=== PATIENT | female | born 1935 | race Caucasian/White ===

== ENCOUNTER 2017-12-01 14:36 | Inpatient (IN) | payer MEDICARE, OTHER ==
[2017-12-01 16:51] LABS: ADD MAN DIFF? NO
[2017-12-01] MEDS: SOD CHLORIDE 0.9% 1,000 ML IV (17:00)
[2017-12-01 17:02] LABS: BASOPHIL # 0.1 10^3/ul (0.0-0.1); BASOPHILS % 0.8 % (0.0-2.0); EOSINOPHILS # 0.2 10^3/ul (0.0-0.5); EOSINOPHILS % 2.5 % (0.0-7.0); HEMOGLOBIN 12.2 g/dl (12.0-16.0); LYMPHOCYTES # 2.1 10^3/ul (0.8-2.9); LYMPHOCYTES % 28.2 % (15.0-51.0); MEAN CORPUSCULAR HEMOGLOBIN 28.1 pg (29.0-33.0); MEAN CORPUSCULAR HGB CONC 32.1 g/dl (32.0-37.0); MEAN CORPUSCULAR VOLUME 87.6 fl (82.0-101.0); MEAN PLATELET VOLUME 10.2 fl (7.4-10.4); MONOCYTE # 0.4 10^3/ul (0.3-0.9); MONOCYTES % 4.8 % (0.0-11.0); NEUTROPHIL # 4.8 10^3/ul (1.6-7.5); NEUTROPHILS % 63.3 % (39.0-77.0); PLATELET COUNT 326 10^3/UL (140-415); RED BLOOD COUNT 4.34 10^6/ul (4.20-5.40); RED CELL DISTRIBUTION WIDTH 13.1 % (11.5-14.5)
[2017-12-01 17:02] LABS: WHITE BLOOD COUNT 7.5 10^3/ul (4.8-10.8)
[2017-12-01] MEDS: PIPER-TAZO 3.375 GM IV (PMX) 100 ML IVPB (17:04)
[2017-12-01 17:32] LABS: ALANINE AMINOTRANSFERASE 24 IU/L (13-69); ALBUMIN 4.4 g/dl (3.3-4.9); ALBUMIN/GLOBULIN RATIO 0.93; ALKALINE PHOSPHATASE 90 IU/L (42-121); ANION GAP 19 (8-16); ASPARTATE AMINO TRANSFERASE 23 IU/L (15-46); BILIRUBIN,INDIRECT 0.3 mg/dl (0-1.1); BILIRUBIN,TOTAL 0.3 mg/dl (0.2-1.3); BLOOD UREA NITROGEN 21 mg/dl (7-20); CALCIUM 9.4 mg/dl (8.4-10.2); CARBON DIOXIDE 28 mmol/L (21-31); CHLORIDE 105 mmol/L (97-110); CREATININE 0.84 mg/dl (0.44-1.00); GLUCOSE 96 mg/dl (70-220); POTASSIUM 4.1 mmol/L (3.5-5.1); SODIUM 148 mmol/L (135-144); TOTAL PROTEIN 9.1 g/dl (6.1-8.1)
[2017-12-01] MEDS: VANCOMYCIN 1 GM (PMX) 250 ML IVPB (18:02)
[2017-12-01 18:08] LABS: ADD UMIC YES; UR ASCORBIC ACID NEGATIVE (NEGATIVE); UR BILIRUBIN (Dip) NEGATIVE (NEGATIVE); UR BLOOD (Dip) 1+ mg/dL (NEGATIVE); UR CLARITY CLOUDY (CLEAR); UR COLOR YELLOW (YELLOW); UR GLUCOSE (Dip) NEGATIVE (NEGATIVE); UR KETONES (Dip) NEGATIVE (NEGATIVE); UR LEUKOCYTE ESTERASE (Dip) 3+ Leu/ul (NEGATIVE); UR NITRITE (Dip) NEGATIVE (NEGATIVE); UR RBC 0 /HPF (0-5); UR SPECIFIC GRAVITY (Dip) 1.004 (1.003-1.030); UR SQUAMOUS EPITHELIAL CELL FEW /HPF (FEW); UR TOTAL PROTEIN (Dip) NEGATIVE (NEGATIVE); UR UROBILINOGEN (Dip) NEGATIVE (NEGATIVE); UR WBC 118 /HPF (0-5)
[2017-12-01] MEDS ORDERED: ONDANSETRON 4 MG INJ IV ×2 (19:00→23:00)
[2017-12-01] MEDS ORDERED: ACETAMINOPHEN 325 MG TAB PO (19:00)
[2017-12-01] MEDS ORDERED: GLUCOSE GEL 15 GRAM TUBE (21:45)
[2017-12-01] MEDS: GLUCOSE GEL 15 GRAM TUBE PO (22:00)
[2017-12-01] MEDS ORDERED: DEXTROSE 50% 50 ML SYRINGE ×2 (22:03→22:05)
[2017-12-02] MEDS: LORAZEPAM 2 MG INJ IV (00:16)
[2017-12-02] MEDS: MEROPENEM 500MG/50 ML (PMX) 50 ML IVPB ×3 (00:17→22:05)
[2017-12-02] MEDS: DEXTROSE 5%-0.45% NACL 1,000 ML IV ×2 (00:17→16:35)
[2017-12-02] MEDS: DEXTROSE 50% 50 ML SYRINGE IV (00:34)
[2017-12-02] MEDS: ACCU-CHEK XX (02:00)
[2017-12-02 06:17] LABS: ADD MAN DIFF? NO
[2017-12-02 06:24] LABS: BASOPHILS % 0.6 % (0.0-2.0); EOSINOPHILS # 0.2 10^3/ul (0.0-0.5); EOSINOPHILS % 2.6 % (0.0-7.0); HEMATOCRIT 33.6 % (37.0-47.0); HEMOGLOBIN 10.8 g/dl (12.0-16.0); LYMPHOCYTES # 1.6 10^3/ul (0.8-2.9); LYMPHOCYTES % 22.7 % (15.0-51.0); MEAN CORPUSCULAR HEMOGLOBIN 28.1 pg (29.0-33.0); MEAN CORPUSCULAR HGB CONC 32.1 g/dl (32.0-37.0); MEAN CORPUSCULAR VOLUME 87.3 fl (82.0-101.0); MEAN PLATELET VOLUME 10.9 fl (7.4-10.4); MONOCYTE # 0.5 10^3/ul (0.3-0.9); MONOCYTES % 7.3 % (0.0-11.0); NEUTROPHIL # 4.6 10^3/ul (1.6-7.5); NEUTROPHILS % 66.4 % (39.0-77.0); PLATELET COUNT 281 10^3/UL (140-415); RED BLOOD COUNT 3.85 10^6/ul (4.20-5.40); RED CELL DISTRIBUTION WIDTH 13.2 % (11.5-14.5)
[2017-12-02 06:24] LABS: WHITE BLOOD COUNT 6.9 10^3/ul (4.8-10.8)
[2017-12-02 06:44] LABS: HEMOGLOBIN A1C 8.6 % (0-5.9)
[2017-12-02 06:55] LABS: MAGNESIUM 1.5 mg/dl (1.7-2.5)
[2017-12-02] MEDS: ENOXAPARIN 40 MG/0.4 ML SYG SC (11:04)
[2017-12-02] MEDS: MAGNESIUM SULFATE 3 GM in DEXTROSE 5% 100 ML IVPB (11:06)
[2017-12-02] MEDS ORDERED: DEXTROSE 50% 50 ML SYRINGE IV ×2 (20:30)
[2017-12-02] MEDS ORDERED: GLUCOSE GEL 15 GRAM TUBE PO ×2 (20:30)
[2017-12-02] MEDS ORDERED: GLUCAGON 1 MG INJ IM (20:30)
[2017-12-02] MEDS ORDERED: GLUCOSE GEL 15 GRAM TUBE BUCCAL (20:30)
[2017-12-02] MEDS: ATORVASTATIN 20 MG TAB PO (22:06)
[2017-12-02] MEDS: INSULIN GLARGINE [LANtus] 3 ML PEN SC (22:06)
[2017-12-02] MEDS: INSULIN ASPART [NOVOLOG] 3 ML PEN SC (22:07)
[2017-12-03] MEDS: ACCU-CHEK XX (02:00)
[2017-12-03 04:53] LABS: ADD MAN DIFF? NO
[2017-12-03 05:31] LABS: INR 1.05; PROTIME 13.8 Sec (11.9-14.9); PT RATIO 1.1
[2017-12-03 06:14] LABS: ALANINE AMINOTRANSFERASE 22 IU/L (13-69); ALBUMIN 3.4 g/dl (3.3-4.9); ALBUMIN/GLOBULIN RATIO 0.89; ALKALINE PHOSPHATASE 76 IU/L (42-121); ANION GAP 16 (8-16); ASPARTATE AMINO TRANSFERASE 23 IU/L (15-46); BILIRUBIN,INDIRECT 0.5 mg/dl (0-1.1); BILIRUBIN,TOTAL 0.5 mg/dl (0.2-1.3); BLOOD UREA NITROGEN 12 mg/dl (7-20); CALCIUM 8.7 mg/dl (8.4-10.2); CARBON DIOXIDE 25 mmol/L (21-31); CHLORIDE 109 mmol/L (97-110); CREATININE 0.71 mg/dl (0.44-1.00); GLUCOSE 114 mg/dl (70-220); PHOSPHORUS 3.4 mg/dl (2.5-4.9); POTASSIUM 3.9 mmol/L (3.5-5.1); SODIUM 146 mmol/L (135-144); TOTAL PROTEIN 7.2 g/dl (6.1-8.1)
[2017-12-03 06:50] LABS: WHITE BLOOD COUNT 5.9 10^3/ul (4.8-10.8)
[2017-12-03 06:50] LABS: BASOPHILS % 0.7 % (0.0-2.0); EOSINOPHILS # 0.2 10^3/ul (0.0-0.5); EOSINOPHILS % 2.6 % (0.0-7.0); HEMATOCRIT 33.7 % (37.0-47.0); LYMPHOCYTES # 1.6 10^3/ul (0.8-2.9); LYMPHOCYTES % 26.7 % (15.0-51.0); MEAN CORPUSCULAR HEMOGLOBIN 28.5 pg (29.0-33.0); MEAN CORPUSCULAR HGB CONC 32.6 g/dl (32.0-37.0); MEAN CORPUSCULAR VOLUME 87.3 fl (82.0-101.0); MEAN PLATELET VOLUME 10.5 fl (7.4-10.4); MONOCYTE # 0.4 10^3/ul (0.3-0.9); MONOCYTES % 7.2 % (0.0-11.0); NEUTROPHIL # 3.7 10^3/ul (1.6-7.5); NEUTROPHILS % 62.3 % (39.0-77.0); PLATELET COUNT 266 10^3/UL (140-415); RED BLOOD COUNT 3.86 10^6/ul (4.20-5.40); RED CELL DISTRIBUTION WIDTH 13.2 % (11.5-14.5)
[2017-12-03] MEDS: INSULIN ASPART [NOVOLOG] 3 ML PEN SC ×4 (08:00→20:25)
[2017-12-03] MEDS: MEROPENEM 500MG/50 ML (PMX) 50 ML IVPB ×2 (08:12→20:21)
[2017-12-03] MEDS: ENOXAPARIN 40 MG/0.4 ML SYG SC (08:28)
[2017-12-03] MEDS: INSULIN GLARGINE [LANtus] 3 ML PEN SC ×2 (08:56→20:24)
[2017-12-03] MEDS: LOSARTAN 50 MG TAB PO (08:57)
[2017-12-03] MEDS: metFORMIN 500 MG TAB PO ×4 (08:57→17:17)
[2017-12-03] MEDS: ASPIRIN (EC) 81 MG TAB PO (08:57)
[2017-12-03] MEDS: AMLODIPINE 10 MG TAB PO (08:57)
[2017-12-03] MEDS: METOPROLOL (XL) 50 MG TAB PO (08:57)
[2017-12-03] MEDS: LACTOBACILLUS RHAMNOSUS CAP PO ×2 (12:20→20:26)
[2017-12-03] MEDS: FLUCONAZOLE 200 MG TAB PO (12:21)
[2017-12-03] MEDS: BARIUM SULF 2% 450 ML BTL (BERRY SMOOTHIE) PO (15:53)
[2017-12-03] MEDS: ATORVASTATIN 20 MG TAB PO (20:26)
[2017-12-03] MEDS: LORAZEPAM 2 MG INJ IV (20:27)
[2017-12-04] MEDS: ACCU-CHEK XX (02:00)
[2017-12-04] MEDS: LEVOFLOXACIN 250 MG TAB PO (05:22)
[2017-12-04] MEDS: metFORMIN 500 MG TAB PO ×3 (07:35→18:07)
[2017-12-04] MEDS: INSULIN ASPART [NOVOLOG] 3 ML PEN SC ×4 (08:00→22:30)
[2017-12-04] MEDS: AMLODIPINE 10 MG TAB PO (09:04)
[2017-12-04] MEDS: FLUCONAZOLE 200 MG TAB PO (09:04)
[2017-12-04] MEDS: LACTOBACILLUS RHAMNOSUS CAP PO ×2 (09:04→22:26)
[2017-12-04] MEDS: MEROPENEM 500MG/50 ML (PMX) 50 ML IVPB ×2 (09:04→22:26)
[2017-12-04] MEDS: LOSARTAN 50 MG TAB PO (09:04)
[2017-12-04] MEDS: ASPIRIN (EC) 81 MG TAB PO (09:04)
[2017-12-04] MEDS: METOPROLOL (XL) 50 MG TAB PO (09:05)
[2017-12-04] MEDS: ENOXAPARIN 40 MG/0.4 ML SYG SC (09:07)
[2017-12-04] MEDS: INSULIN GLARGINE [LANtus] 3 ML PEN SC ×2 (09:07→22:29)
[2017-12-04] MEDS: ATORVASTATIN 20 MG TAB PO (22:26)
[2017-12-04] MEDS: QUETIAPINE 25 MG TAB PO (22:26)
[2017-12-05] MEDS: LORAZEPAM 2 MG INJ IV (01:36)
[2017-12-05] MEDS: ACCU-CHEK XX (01:45)
[2017-12-05] MEDS: INFLUENZA VIRUS VACCINE 0.5 ML (DISPENSING) IM* (09:00)
[2017-12-05] MEDS: MEROPENEM 500MG/50 ML (PMX) 50 ML IVPB ×2 (09:22→22:01)
[2017-12-05] MEDS: LOSARTAN 50 MG TAB PO (09:22)
[2017-12-05] MEDS: FLUCONAZOLE 200 MG TAB PO (09:22)
[2017-12-05] MEDS: metFORMIN 500 MG TAB PO ×3 (09:23→18:24)
[2017-12-05] MEDS: METOPROLOL (XL) 50 MG TAB PO (09:23)
[2017-12-05] MEDS: AMLODIPINE 10 MG TAB PO (09:23)
[2017-12-05] MEDS: ASPIRIN (EC) 81 MG TAB PO (09:23)
[2017-12-05] MEDS: LACTOBACILLUS RHAMNOSUS CAP PO ×2 (09:23→22:00)
[2017-12-05] MEDS: ENOXAPARIN 40 MG/0.4 ML SYG SC (09:25)
[2017-12-05] MEDS: INSULIN GLARGINE [LANtus] 3 ML PEN SC ×2 (09:26→21:58)
[2017-12-05] MEDS: INSULIN ASPART [NOVOLOG] 3 ML PEN SC ×4 (09:26→21:59)
[2017-12-05] MEDS: ATORVASTATIN 20 MG TAB PO (22:00)
[2017-12-05] MEDS: QUETIAPINE 25 MG TAB PO (22:00)
[2017-12-06] MEDS: ACCU-CHEK XX (02:00)
[2017-12-06] MEDS: LORAZEPAM 2 MG INJ IV (03:39)
[2017-12-06] MEDS: INSULIN ASPART [NOVOLOG] 3 ML PEN SC ×3 (08:42→17:30)
[2017-12-06] MEDS: INSULIN GLARGINE [LANtus] 3 ML PEN SC (08:43)
[2017-12-06] MEDS: ENOXAPARIN 40 MG/0.4 ML SYG SC (08:43)
[2017-12-06] MEDS: MEROPENEM 500MG/50 ML (PMX) 50 ML IVPB (08:44)
[2017-12-06] MEDS: metFORMIN 500 MG TAB PO ×3 (08:45→17:50)
[2017-12-06] MEDS: LACTOBACILLUS RHAMNOSUS CAP PO (08:45)
[2017-12-06] MEDS: ASPIRIN (EC) 81 MG TAB PO (08:45)
[2017-12-06] MEDS: AMLODIPINE 10 MG TAB PO (08:45)
[2017-12-06] MEDS: LOSARTAN 50 MG TAB PO (08:46)
[2017-12-06] MEDS: METOPROLOL (XL) 50 MG TAB PO (08:46)
== END 2017-12-06 19:10 | disposition home health service (06) | DRG 57 ==
LOC: PP2 20:43 → E/R 14:36 → PP2 18:57
DX: G30.9 Alzheimer's disease, unspecified (principal); F05 Delirium due to known physiological condition; B37.49 Other urogenital candidiasis; D64.9 Anemia, unspecified; E11.9 Type 2 diabetes mellitus without complications; E78.5 Hyperlipidemia, unspecified; I10 Essential (primary) hypertension; F02.80 Dementia in other diseases classified elsewhere, unspecified severity, without behavioral disturbance, psychotic disturbance, mood disturbance, and anxiety; M54.30 Sciatica, unspecified side; Z79.4 Long term (current) use of insulin; Z79.82 Long term (current) use of aspirin; Z90.49 Acquired absence of other specified parts of digestive tract
CPT/HCPCS: 36415; 71045; 74176; 80053; 81001; 82962; 83036; 83735; 84100; 84443; 85025; 85610; 87040; 87086; 92610; 93306; 96374; 96375; 97116; 97162; 97530; 99285-25

== ENCOUNTER 2017-12-21 16:22 | Inpatient (IN) | payer MEDICARE, OTHER ==
[2017-12-21] MEDS: SODIUM CHLORIDE 0.9% 1L BAG IV* (17:36)
[2017-12-21 17:49] LABS: ADD MAN DIFF? NO
[2017-12-21 17:52] LABS: BASOPHILS % 0.4 % (0.0-2.0); EOSINOPHILS # 0.1 10^3/ul (0.0-0.5); HEMATOCRIT 36.3 % (37.0-47.0); HEMOGLOBIN 11.8 g/dl (12.0-16.0); LYMPHOCYTES # 1.5 10^3/ul (0.8-2.9); LYMPHOCYTES % 21.6 % (15.0-51.0); MEAN CORPUSCULAR HEMOGLOBIN 28.6 pg (29.0-33.0); MEAN CORPUSCULAR HGB CONC 32.5 g/dl (32.0-37.0); MEAN CORPUSCULAR VOLUME 87.9 fl (82.0-101.0); MEAN PLATELET VOLUME 10.9 fl (7.4-10.4); MONOCYTE # 0.7 10^3/ul (0.3-0.9); MONOCYTES % 9.7 % (0.0-11.0); NEUTROPHIL # 4.8 10^3/ul (1.6-7.5); NEUTROPHILS % 67.2 % (39.0-77.0); PLATELET COUNT 360 10^3/UL (140-415); RED BLOOD COUNT 4.13 10^6/ul (4.20-5.40); RED CELL DISTRIBUTION WIDTH 13.7 % (11.5-14.5)
[2017-12-21 17:52] LABS: WHITE BLOOD COUNT 7.1 10^3/ul (4.8-10.8)
[2017-12-21] MEDS: CEFEPIME 2GM/50 ML (PMX) 50 ML IVPB (18:07)
[2017-12-21 18:12] LABS: PROTIME 13.3 Sec (11.9-14.9)
[2017-12-21 18:13] LABS: PARTIAL THROMBOPLASTIN TIME 35.6 Sec (25.0-35.0)
[2017-12-21 18:16] LABS: ALANINE AMINOTRANSFERASE 17 IU/L (13-69); ALBUMIN/GLOBULIN RATIO 1.05; ALKALINE PHOSPHATASE 80 IU/L (42-121); ANION GAP 21 (8-16); ASPARTATE AMINO TRANSFERASE 15 IU/L (15-46); BILIRUBIN,INDIRECT 0.1 mg/dl (0-1.1); BILIRUBIN,TOTAL 0.1 mg/dl (0.2-1.3); BLOOD UREA NITROGEN 45 mg/dl (7-20); CALCIUM 9.3 mg/dl (8.4-10.2); CARBON DIOXIDE 22 mmol/L (21-31); CHLORIDE 104 mmol/L (97-110); CREATININE 1.21 mg/dl (0.44-1.00); GLUCOSE 319 mg/dl (70-220); POTASSIUM 5.9 mmol/L (3.5-5.1); SODIUM 141 mmol/L (135-144); TOTAL PROTEIN 7.8 g/dl (6.1-8.1)
[2017-12-21 18:35] LABS: ADD UMIC YES; UR ASCORBIC ACID NEGATIVE (NEGATIVE); UR BACTERIA MODERATE /HPF (NONE SEEN); UR BILIRUBIN (Dip) NEGATIVE (NEGATIVE); UR BLOOD (Dip) 1+ mg/dL (NEGATIVE); UR CLARITY TURBID (CLEAR); UR COLOR AMBER (YELLOW); UR GLUCOSE (Dip) NEGATIVE (NEGATIVE); UR KETONES (Dip) NEGATIVE (NEGATIVE); UR LEUKOCYTE ESTERASE (Dip) 3+ Leu/ul (NEGATIVE); UR NITRITE (Dip) NEGATIVE (NEGATIVE); UR RBC 0 /HPF (0-5); UR SQUAMOUS EPITHELIAL CELL MODERATE /HPF (FEW); UR TOTAL PROTEIN (Dip) 2+ mg/dl (NEGATIVE); UR UROBILINOGEN (Dip) NEGATIVE (NEGATIVE); UR WBC > 182 /HPF (0-5)
[2017-12-21 18:35] LABS: LACTIC ACID 2.6 mmol/L (0.5-2.0)
[2017-12-21 18:37] LABS: TROPONIN-I < 0.012 ng/ml (0.00-0.12)
[2017-12-21] MEDS: HALOPERIDOL 5 MG INJ IM (18:52)
[2017-12-21 19:44] LABS: LACTIC ACID 2.6 mmol/L (0.5-2.0)
[2017-12-21] MEDS ORDERED: DEXTROSE 50% 50 ML SYRINGE IV ×3 (20:00→21:00)
[2017-12-21] MEDS: FUROSEMIDE 20 MG INJ IV (20:14)
[2017-12-21] MEDS: INSULIN REGULAR, HUMAN 100 UNIT/1 ML 3ML VIAL IVP (20:29)
[2017-12-21] MEDS: DEXTROSE 50% 50 ML SYRINGE IV (20:33)
[2017-12-21] MEDS ORDERED: GLUCAGON 1 MG INJ IM (21:00)
[2017-12-21] MEDS ORDERED: GLUCOSE GEL 15 GRAM TUBE PO ×2 (21:00)
[2017-12-21] MEDS ORDERED: GLUCOSE GEL 15 GRAM TUBE BUCCAL (21:00)
[2017-12-21] MEDS ORDERED: ONDANSETRON 4 MG INJ IV (21:00)
[2017-12-21] MEDS ORDERED: NACL 0.9% 3 ML SYG IV (21:00)
[2017-12-21] MEDS ORDERED: ACETAMINOPHEN 325 MG TAB PO (21:00)
[2017-12-21 22:32] LABS: LACTIC ACID 3.2 mmol/L (0.5-2.0)
[2017-12-21] MEDS: PIPER-TAZO 3.375 GM IV (PMX) 100 ML IVPB (23:14)
[2017-12-21] MEDS: SOD CHLORIDE 0.9% 1,000 ML IV (23:15)
[2017-12-22] MEDS ORDERED: INSULIN ASPART [NOVOLOG] 3 ML PEN SC (01:00)
[2017-12-22 01:27] LABS: LACTIC ACID 2.2 mmol/L (0.5-2.0)
[2017-12-22] MEDS ORDERED: ACCU-CHEK XX (02:00)
[2017-12-22 02:05] LABS: ALANINE AMINOTRANSFERASE 17 IU/L (13-69); ALBUMIN 3.6 g/dl (3.3-4.9); ALBUMIN/GLOBULIN RATIO 0.92; ALKALINE PHOSPHATASE 64 IU/L (42-121); ANION GAP 16 (8-16); ASPARTATE AMINO TRANSFERASE 29 IU/L (15-46); BILIRUBIN,INDIRECT 0.3 mg/dl (0-1.1); BILIRUBIN,TOTAL 0.3 mg/dl (0.2-1.3); BLOOD UREA NITROGEN 38 mg/dl (7-20); CALCIUM 9.1 mg/dl (8.4-10.2); CARBON DIOXIDE 21 mmol/L (21-31); CHLORIDE 112 mmol/L (97-110); CREATININE 0.98 mg/dl (0.44-1.00); GLUCOSE 105 mg/dl (70-220); POTASSIUM 5.1 mmol/L (3.5-5.1); SODIUM 144 mmol/L (135-144); TOTAL PROTEIN 7.5 g/dl (6.1-8.1)
[2017-12-22] MEDS: PIPER-TAZO 3.375 GM IV (PMX) 100 ML IVPB ×3 (05:48→21:03)
[2017-12-22 08:44] LABS: ADD MAN DIFF? NO
[2017-12-22 08:49] LABS: BASOPHILS % 0.7 % (0.0-2.0); EOSINOPHILS # 0.2 10^3/ul (0.0-0.5); EOSINOPHILS % 3.5 % (0.0-7.0); HEMATOCRIT 32.8 % (37.0-47.0); HEMOGLOBIN 10.8 g/dl (12.0-16.0); LYMPHOCYTES # 1.5 10^3/ul (0.8-2.9); LYMPHOCYTES % 24.6 % (15.0-51.0); MEAN CORPUSCULAR HEMOGLOBIN 28.7 pg (29.0-33.0); MEAN CORPUSCULAR HGB CONC 32.9 g/dl (32.0-37.0); MEAN CORPUSCULAR VOLUME 87.2 fl (82.0-101.0); MEAN PLATELET VOLUME 10.9 fl (7.4-10.4); MONOCYTE # 0.7 10^3/ul (0.3-0.9); NEUTROPHIL # 3.6 10^3/ul (1.6-7.5); NEUTROPHILS % 59.9 % (39.0-77.0); PLATELET COUNT 295 10^3/UL (140-415); RED BLOOD COUNT 3.76 10^6/ul (4.20-5.40); RED CELL DISTRIBUTION WIDTH 13.7 % (11.5-14.5)
[2017-12-22] MEDS: ASPIRIN (EC) 81 MG TAB PO (08:52)
[2017-12-22] MEDS: OXYBUTYNIN 5 MG TAB PO (08:52)
[2017-12-22] MEDS: METOPROLOL (XL) 50 MG TAB PO (08:53)
[2017-12-22] MEDS: INSULIN GLARGINE [LANtus] 3 ML PEN SC ×2 (09:04→21:00)
[2017-12-22] MEDS: INSULIN ASPART [NOVOLOG] 3 ML PEN SC ×4 (09:04→23:09)
[2017-12-22 09:22] LABS: ALANINE AMINOTRANSFERASE 20 IU/L (13-69); ALBUMIN 3.4 g/dl (3.3-4.9); ALKALINE PHOSPHATASE 72 IU/L (42-121); ANION GAP 17 (8-16); ASPARTATE AMINO TRANSFERASE 16 IU/L (15-46); BILIRUBIN,INDIRECT 0.3 mg/dl (0-1.1); BILIRUBIN,TOTAL 0.3 mg/dl (0.2-1.3); BLOOD UREA NITROGEN 29 mg/dl (7-20); CALCIUM 8.9 mg/dl (8.4-10.2); CARBON DIOXIDE 23 mmol/L (21-31); CHLORIDE 109 mmol/L (97-110); CREATININE 0.93 mg/dl (0.44-1.00); GLUCOSE 129 mg/dl (70-220); POTASSIUM 4.5 mmol/L (3.5-5.1); SODIUM 144 mmol/L (135-144); TOTAL PROTEIN 6.8 g/dl (6.1-8.1)
[2017-12-22 09:51] LABS: LACTIC ACID 1.3 mmol/L (0.5-2.0)
[2017-12-22] MEDS: SOD CHLORIDE 0.9% 1,000 ML IV (12:29)
[2017-12-22] MEDS: ATORVASTATIN 20 MG TAB PO (20:58)
[2017-12-23] MEDS: ACCUCHECK AT 2AM (Patients on SS coverage) XX (01:13)
[2017-12-23] MEDS: SOD CHLORIDE 0.9% 1,000 ML IV ×2 (03:25→14:14)
[2017-12-23] MEDS: PIPER-TAZO 3.375 GM IV (PMX) 100 ML IVPB ×3 (05:07→20:39)
[2017-12-23 06:40] LABS: ADD MAN DIFF? NO
[2017-12-23 06:47] LABS: BASOPHIL # 0.1 10^3/ul (0.0-0.1); BASOPHILS % 0.8 % (0.0-2.0); EOSINOPHILS # 0.2 10^3/ul (0.0-0.5); EOSINOPHILS % 2.8 % (0.0-7.0); HEMATOCRIT 34.2 % (37.0-47.0); HEMOGLOBIN 11.3 g/dl (12.0-16.0); LYMPHOCYTES # 1.9 10^3/ul (0.8-2.9); MEAN CORPUSCULAR HEMOGLOBIN 28.4 pg (29.0-33.0); MEAN CORPUSCULAR VOLUME 85.9 fl (82.0-101.0); MEAN PLATELET VOLUME 10.7 fl (7.4-10.4); MONOCYTE # 0.7 10^3/ul (0.3-0.9); MONOCYTES % 9.8 % (0.0-11.0); NEUTROPHIL # 4.4 10^3/ul (1.6-7.5); NEUTROPHILS % 60.2 % (39.0-77.0); PLATELET COUNT 337 10^3/UL (140-415); RED BLOOD COUNT 3.98 10^6/ul (4.20-5.40); RED CELL DISTRIBUTION WIDTH 13.8 % (11.5-14.5)
[2017-12-23 06:47] LABS: WHITE BLOOD COUNT 7.2 10^3/ul (4.8-10.8)
[2017-12-23 07:07] LABS: ALBUMIN 3.8 g/dl (3.3-4.9); ANION GAP 16 (8-16); BLOOD UREA NITROGEN 19 mg/dl (7-20); CALCIUM 8.9 mg/dl (8.4-10.2); CARBON DIOXIDE 23 mmol/L (21-31); CHLORIDE 109 mmol/L (97-110); CREATININE 0.87 mg/dl (0.44-1.00); GLUCOSE 125 mg/dl (70-220); MAGNESIUM 1.2 mg/dl (1.7-2.5); PHOSPHORUS 3.7 mg/dl (2.5-4.9); POTASSIUM 4.1 mmol/L (3.5-5.1); SODIUM 144 mmol/L (135-144)
[2017-12-23] MEDS: INSULIN ASPART [NOVOLOG] 3 ML PEN SC ×4 (08:00→20:29)
[2017-12-23] MEDS: COLLAGENASE 5 GM (UD JAR) TOP (08:12)
[2017-12-23] MEDS: ASPIRIN (EC) 81 MG TAB PO (08:12)
[2017-12-23] MEDS: INSULIN GLARGINE [LANtus] 3 ML PEN SC ×2 (08:13→20:28)
[2017-12-23] MEDS: OXYBUTYNIN 5 MG TAB PO (08:13)
[2017-12-23] MEDS: METOPROLOL (XL) 50 MG TAB PO (08:19)
[2017-12-23] MEDS: ENOXAPARIN 30 MG/0.3 ML SYG SC (14:08)
[2017-12-23] MEDS: MAGNESIUM SULFATE 3 GM in DEXTROSE 5% 100 ML IVPB (16:07)
[2017-12-23] MEDS: DOCUSATE SODIUM 100 MG CAP PO (20:25)
[2017-12-23] MEDS: ATORVASTATIN 20 MG TAB PO (20:25)
[2017-12-24] MEDS: ACCUCHECK AT 2AM (Patients on SS coverage) XX (02:22)
[2017-12-24 06:02] LABS: ADD MAN DIFF? NO
[2017-12-24] MEDS: PIPER-TAZO 3.375 GM IV (PMX) 100 ML IVPB ×3 (06:06→21:47)
[2017-12-24 06:09] LABS: WHITE BLOOD COUNT 6.1 10^3/ul (4.8-10.8)
[2017-12-24 06:09] LABS: BASOPHIL # 0.1 10^3/ul (0.0-0.1); BASOPHILS % 0.8 % (0.0-2.0); EOSINOPHILS # 0.2 10^3/ul (0.0-0.5); EOSINOPHILS % 3.9 % (0.0-7.0); HEMATOCRIT 34.5 % (37.0-47.0); HEMOGLOBIN 11.1 g/dl (12.0-16.0); LYMPHOCYTES # 1.9 10^3/ul (0.8-2.9); MEAN CORPUSCULAR HEMOGLOBIN 28.3 pg (29.0-33.0); MEAN CORPUSCULAR HGB CONC 32.2 g/dl (32.0-37.0); MEAN PLATELET VOLUME 10.4 fl (7.4-10.4); MONOCYTE # 0.6 10^3/ul (0.3-0.9); MONOCYTES % 9.5 % (0.0-11.0); NEUTROPHIL # 3.3 10^3/ul (1.6-7.5); NEUTROPHILS % 54.5 % (39.0-77.0); PLATELET COUNT 325 10^3/UL (140-415); RED BLOOD COUNT 3.92 10^6/ul (4.20-5.40); RED CELL DISTRIBUTION WIDTH 13.6 % (11.5-14.5)
[2017-12-24 06:28] LABS: ANION GAP 13 (8-16); BLOOD UREA NITROGEN 20 mg/dl (7-20); CALCIUM 8.9 mg/dl (8.4-10.2); CARBON DIOXIDE 27 mmol/L (21-31); CHLORIDE 111 mmol/L (97-110); CREATININE 0.89 mg/dl (0.44-1.00); GLUCOSE 170 mg/dl (70-220); MAGNESIUM 2.1 mg/dl (1.7-2.5); PHOSPHORUS 3.9 mg/dl (2.5-4.9); POTASSIUM 3.8 mmol/L (3.5-5.1); SODIUM 147 mmol/L (135-144)
[2017-12-24] MEDS: COLLAGENASE 5 GM (UD JAR) TOP ×2 (09:00)
[2017-12-24] MEDS: INSULIN ASPART [NOVOLOG] 3 ML PEN SC ×4 (09:27→21:43)
[2017-12-24] MEDS: INSULIN GLARGINE [LANtus] 3 ML PEN SC ×2 (09:29→21:44)
[2017-12-24] MEDS: ASPIRIN (EC) 81 MG TAB PO (09:30)
[2017-12-24] MEDS: METOPROLOL (XL) 50 MG TAB PO (09:31)
[2017-12-24] MEDS: OXYBUTYNIN 5 MG TAB PO (09:31)
[2017-12-24] MEDS: ENOXAPARIN 30 MG/0.3 ML SYG SC (09:32)
[2017-12-24] MEDS: ATORVASTATIN 20 MG TAB PO (21:37)
[2017-12-24] MEDS: DOCUSATE SODIUM 100 MG CAP PO (21:37)
[2017-12-25] MEDS: QUETIAPINE 25 MG TAB PO (00:02)
[2017-12-25] MEDS: ACCUCHECK AT 2AM (Patients on SS coverage) XX (02:00)
[2017-12-25] MEDS: PIPER-TAZO 3.375 GM IV (PMX) 100 ML IVPB (05:34)
[2017-12-25 06:00] LABS: ADD MAN DIFF? NO
[2017-12-25 06:16] LABS: BASOPHILS % 0.7 % (0.0-2.0); EOSINOPHILS # 0.2 10^3/ul (0.0-0.5); EOSINOPHILS % 3.6 % (0.0-7.0); HEMATOCRIT 33.6 % (37.0-47.0); HEMOGLOBIN 10.9 g/dl (12.0-16.0); LYMPHOCYTES # 1.7 10^3/ul (0.8-2.9); LYMPHOCYTES % 31.1 % (15.0-51.0); MEAN CORPUSCULAR HEMOGLOBIN 28.6 pg (29.0-33.0); MEAN CORPUSCULAR HGB CONC 32.4 g/dl (32.0-37.0); MEAN CORPUSCULAR VOLUME 88.2 fl (82.0-101.0); MEAN PLATELET VOLUME 10.4 fl (7.4-10.4); MONOCYTE # 0.5 10^3/ul (0.3-0.9); MONOCYTES % 8.9 % (0.0-11.0); NEUTROPHIL # 3.1 10^3/ul (1.6-7.5); NEUTROPHILS % 55.2 % (39.0-77.0); PLATELET COUNT 290 10^3/UL (140-415); RED BLOOD COUNT 3.81 10^6/ul (4.20-5.40); RED CELL DISTRIBUTION WIDTH 13.4 % (11.5-14.5)
[2017-12-25 06:16] LABS: WHITE BLOOD COUNT 5.5 10^3/ul (4.8-10.8)
[2017-12-25 06:40] LABS: ALANINE AMINOTRANSFERASE 30 IU/L (13-69); ALBUMIN 3.5 g/dl (3.3-4.9); ALBUMIN/GLOBULIN RATIO 0.92; ALKALINE PHOSPHATASE 60 IU/L (42-121); ANION GAP 12 (8-16); ASPARTATE AMINO TRANSFERASE 35 IU/L (15-46); BILIRUBIN,INDIRECT 0.2 mg/dl (0-1.1); BILIRUBIN,TOTAL 0.2 mg/dl (0.2-1.3); BLOOD UREA NITROGEN 28 mg/dl (7-20); CARBON DIOXIDE 27 mmol/L (21-31); CHLORIDE 110 mmol/L (97-110); CREATININE 0.93 mg/dl (0.44-1.00); GLUCOSE 215 mg/dl (70-220); POTASSIUM 4.2 mmol/L (3.5-5.1); SODIUM 145 mmol/L (135-144); TOTAL PROTEIN 7.3 g/dl (6.1-8.1)
[2017-12-25] MEDS: INSULIN ASPART [NOVOLOG] 3 ML PEN SC ×4 (08:38→21:00)
[2017-12-25] MEDS: ENOXAPARIN 40 MG/0.4 ML SYG SC (08:39)
[2017-12-25] MEDS: INSULIN GLARGINE [LANtus] 3 ML PEN SC ×2 (08:39→22:29)
[2017-12-25] MEDS: ASPIRIN (EC) 81 MG TAB PO (08:40)
[2017-12-25] MEDS: METOPROLOL (XL) 50 MG TAB PO (08:40)
[2017-12-25] MEDS: OXYBUTYNIN 5 MG TAB PO (08:40)
[2017-12-25] MEDS: COLLAGENASE 5 GM (UD JAR) TOP ×2 (09:00→11:13)
[2017-12-25] MEDS: LEVOFLOXACIN 500MG/D5W (PMX) 100 ML IVPB (12:20)
[2017-12-25] MEDS: DOCUSATE SODIUM 100 MG CAP PO (22:03)
[2017-12-25] MEDS: ATORVASTATIN 20 MG TAB PO (22:03)
[2017-12-26] MEDS: ACCUCHECK AT 2AM (Patients on SS coverage) XX (01:17)
[2017-12-26 06:11] LABS: ADD MAN DIFF? NO
[2017-12-26 06:22] LABS: BASOPHIL # 0.1 10^3/ul (0.0-0.1); BASOPHILS % 0.8 % (0.0-2.0); EOSINOPHILS # 0.2 10^3/ul (0.0-0.5); EOSINOPHILS % 3.7 % (0.0-7.0); HEMATOCRIT 35.7 % (37.0-47.0); HEMOGLOBIN 11.6 g/dl (12.0-16.0); LYMPHOCYTES # 2.2 10^3/ul (0.8-2.9); LYMPHOCYTES % 34.2 % (15.0-51.0); MEAN CORPUSCULAR HEMOGLOBIN 28.2 pg (29.0-33.0); MEAN CORPUSCULAR HGB CONC 32.5 g/dl (32.0-37.0); MEAN CORPUSCULAR VOLUME 86.9 fl (82.0-101.0); MEAN PLATELET VOLUME 10.3 fl (7.4-10.4); MONOCYTE # 0.5 10^3/ul (0.3-0.9); MONOCYTES % 7.8 % (0.0-11.0); NEUTROPHIL # 3.4 10^3/ul (1.6-7.5); NEUTROPHILS % 53.3 % (39.0-77.0); PLATELET COUNT 322 10^3/UL (140-415); RED BLOOD COUNT 4.11 10^6/ul (4.20-5.40); RED CELL DISTRIBUTION WIDTH 13.5 % (11.5-14.5)
[2017-12-26 06:22] LABS: WHITE BLOOD COUNT 6.4 10^3/ul (4.8-10.8)
[2017-12-26 06:40] LABS: ANION GAP 14 (8-16); BLOOD UREA NITROGEN 25 mg/dl (7-20); CALCIUM 9.3 mg/dl (8.4-10.2); CARBON DIOXIDE 26 mmol/L (21-31); CHLORIDE 108 mmol/L (97-110); CREATININE 0.87 mg/dl (0.44-1.00); GLUCOSE 96 mg/dl (70-220); MAGNESIUM 1.5 mg/dl (1.7-2.5); POTASSIUM 3.9 mmol/L (3.5-5.1); SODIUM 144 mmol/L (135-144)
[2017-12-26] MEDS: INSULIN ASPART [NOVOLOG] 3 ML PEN SC ×4 (08:15→22:10)
[2017-12-26] MEDS: OXYBUTYNIN 5 MG TAB PO (08:42)
[2017-12-26] MEDS: METOPROLOL (XL) 50 MG TAB PO (08:44)
[2017-12-26] MEDS: ASPIRIN (EC) 81 MG TAB PO (08:44)
[2017-12-26] MEDS: INSULIN GLARGINE [LANtus] 3 ML PEN SC ×2 (08:47→22:11)
[2017-12-26] MEDS ORDERED: PIPER-TAZO 3.375 GM IV (PMX) 100 ML IVPB (12:00)
[2017-12-26] MEDS: MEROPENEM 1 GM/50ML(PMX) 50 ML IVPB ×2 (12:30→22:02)
[2017-12-26] MEDS: hydrALAzine 20 MG INJ IV (13:27)
[2017-12-26] MEDS: DOCUSATE SODIUM 100 MG CAP PO (22:02)
[2017-12-26] MEDS: ATORVASTATIN 20 MG TAB PO (22:02)
[2017-12-27] MEDS: ACCUCHECK AT 2AM (Patients on SS coverage) XX (02:00)
[2017-12-27] MEDS: hydrALAzine 20 MG INJ IV (04:39)
[2017-12-27 05:49] LABS: ADD MAN DIFF? NO
[2017-12-27 05:58] LABS: WHITE BLOOD COUNT 9.4 10^3/ul (4.8-10.8)
[2017-12-27 05:58] LABS: BASOPHIL # 0.1 10^3/ul (0.0-0.1); BASOPHILS % 0.6 % (0.0-2.0); EOSINOPHILS # 0.1 10^3/ul (0.0-0.5); EOSINOPHILS % 1.4 % (0.0-7.0); HEMATOCRIT 34.1 % (37.0-47.0); HEMOGLOBIN 11.2 g/dl (12.0-16.0); LYMPHOCYTES # 2.2 10^3/ul (0.8-2.9); LYMPHOCYTES % 23.4 % (15.0-51.0); MEAN CORPUSCULAR HEMOGLOBIN 28.1 pg (29.0-33.0); MEAN CORPUSCULAR HGB CONC 32.8 g/dl (32.0-37.0); MEAN CORPUSCULAR VOLUME 85.7 fl (82.0-101.0); MEAN PLATELET VOLUME 10.2 fl (7.4-10.4); MONOCYTE # 0.9 10^3/ul (0.3-0.9); NEUTROPHIL # 6.1 10^3/ul (1.6-7.5); NEUTROPHILS % 65.3 % (39.0-77.0); PLATELET COUNT 360 10^3/UL (140-415); RED BLOOD COUNT 3.98 10^6/ul (4.20-5.40); RED CELL DISTRIBUTION WIDTH 13.2 % (11.5-14.5)
[2017-12-27 06:20] LABS: ANION GAP 15 (8-16); BLOOD UREA NITROGEN 31 mg/dl (7-20); CALCIUM 9.4 mg/dl (8.4-10.2); CARBON DIOXIDE 23 mmol/L (21-31); CHLORIDE 108 mmol/L (97-110); CREATININE 0.89 mg/dl (0.44-1.00); GLUCOSE 141 mg/dl (70-220); POTASSIUM 3.7 mmol/L (3.5-5.1); SODIUM 142 mmol/L (135-144)
[2017-12-27 06:38] LABS: MAGNESIUM 1.5 mg/dl (1.7-2.5)
[2017-12-27 06:38] LABS: PHOSPHORUS 3.7 mg/dl (2.5-4.9)
[2017-12-27] MEDS: INSULIN ASPART [NOVOLOG] 3 ML PEN SC ×4 (08:21→21:07)
[2017-12-27] MEDS: INSULIN GLARGINE [LANtus] 3 ML PEN SC ×2 (08:22→21:06)
[2017-12-27] MEDS: OXYBUTYNIN 5 MG TAB PO (09:05)
[2017-12-27] MEDS: ASPIRIN (EC) 81 MG TAB PO (09:06)
[2017-12-27] MEDS: METOPROLOL (XL) 50 MG TAB PO (09:06)
[2017-12-27] MEDS: MEROPENEM 1 GM/50ML(PMX) 50 ML IVPB ×2 (12:47→21:02)
[2017-12-27] MEDS: DOCUSATE SODIUM 100 MG CAP PO (21:02)
[2017-12-27] MEDS: ATORVASTATIN 20 MG TAB PO (21:02)
[2017-12-28] MEDS: ACCUCHECK AT 2AM (Patients on SS coverage) XX (02:00)
[2017-12-28 07:14] LABS: ADD MAN DIFF? NO
[2017-12-28 07:19] LABS: WHITE BLOOD COUNT 7.1 10^3/ul (4.8-10.8)
[2017-12-28 07:19] LABS: BASOPHIL # 0.1 10^3/ul (0.0-0.1); EOSINOPHILS # 0.3 10^3/ul (0.0-0.5); EOSINOPHILS % 3.6 % (0.0-7.0); HEMATOCRIT 33.4 % (37.0-47.0); HEMOGLOBIN 11.1 g/dl (12.0-16.0); LYMPHOCYTES # 1.9 10^3/ul (0.8-2.9); LYMPHOCYTES % 26.3 % (15.0-51.0); MEAN CORPUSCULAR HEMOGLOBIN 28.6 pg (29.0-33.0); MEAN CORPUSCULAR HGB CONC 33.2 g/dl (32.0-37.0); MEAN CORPUSCULAR VOLUME 86.1 fl (82.0-101.0); MEAN PLATELET VOLUME 10.4 fl (7.4-10.4); MONOCYTE # 0.7 10^3/ul (0.3-0.9); MONOCYTES % 9.1 % (0.0-11.0); NEUTROPHIL # 4.3 10^3/ul (1.6-7.5); NEUTROPHILS % 59.6 % (39.0-77.0); PLATELET COUNT 337 10^3/UL (140-415); RED BLOOD COUNT 3.88 10^6/ul (4.20-5.40); RED CELL DISTRIBUTION WIDTH 13.6 % (11.5-14.5)
[2017-12-28 07:41] LABS: ANION GAP 15 (8-16); BLOOD UREA NITROGEN 27 mg/dl (7-20); CALCIUM 9.1 mg/dl (8.4-10.2); CARBON DIOXIDE 26 mmol/L (21-31); CHLORIDE 107 mmol/L (97-110); CREATININE 0.81 mg/dl (0.44-1.00); GLUCOSE 166 mg/dl (70-220); MAGNESIUM 1.6 mg/dl (1.7-2.5); PHOSPHORUS 3.8 mg/dl (2.5-4.9); POTASSIUM 3.7 mmol/L (3.5-5.1); SODIUM 144 mmol/L (135-144)
[2017-12-28] MEDS: METOPROLOL (XL) 50 MG TAB PO (08:58)
[2017-12-28] MEDS: ASPIRIN (EC) 81 MG TAB PO (08:58)
[2017-12-28] MEDS: MEROPENEM 1 GM/50ML(PMX) 50 ML IVPB ×2 (08:58→21:35)
[2017-12-28] MEDS: INSULIN GLARGINE [LANtus] 3 ML PEN SC ×2 (09:00→21:45)
[2017-12-28] MEDS: INSULIN ASPART [NOVOLOG] 3 ML PEN SC ×5 (09:01→22:12)
[2017-12-28] MEDS: OXYBUTYNIN 5 MG TAB PO (09:04)
[2017-12-28] MEDS: MAGNESIUM SULFATE 2 GM/50 ML 50 ML IVPB (14:52)
[2017-12-28] MEDS: ATORVASTATIN 20 MG TAB PO (21:35)
[2017-12-28] MEDS: DOCUSATE SODIUM 100 MG CAP PO (21:35)
[2017-12-29] MEDS: ACCUCHECK AT 2AM (Patients on SS coverage) XX (01:35)
[2017-12-29] MEDS: ASPIRIN (EC) 81 MG TAB PO (09:05)
[2017-12-29] MEDS: OXYBUTYNIN 5 MG TAB PO (09:05)
[2017-12-29] MEDS: METOPROLOL (XL) 50 MG TAB PO (09:05)
[2017-12-29] MEDS: INSULIN ASPART [NOVOLOG] 3 ML PEN SC ×5 (09:07→21:49)
[2017-12-29] MEDS ORDERED: POLYETHYLENE GLYCOL 17 GM PACKET PO (10:30)
[2017-12-29] MEDS: ERTAPENEM SODIUM 1 GM in SOD CHLORIDE 0.9% 100 ML IVPB (11:15)
[2017-12-29] MEDS ORDERED: LIDOCAINE 1% (MPF) 5 ML VIAL SC (19:00)
[2017-12-29] MEDS: DOCUSATE SODIUM 100 MG CAP PO (21:26)
[2017-12-29] MEDS: ATORVASTATIN 20 MG TAB PO (21:26)
[2017-12-29] MEDS: INSULIN GLARGINE [LANtus] 3 ML PEN SC (21:32)
[2017-12-30] MEDS: ACCUCHECK AT 2AM (Patients on SS coverage) XX (01:44)
[2017-12-30 06:04] LABS: ADD MAN DIFF? NO
[2017-12-30 06:24] LABS: WHITE BLOOD COUNT 7.3 10^3/ul (4.8-10.8)
[2017-12-30 06:24] LABS: BASOPHIL # 0.1 10^3/ul (0.0-0.1); BASOPHILS % 0.7 % (0.0-2.0); EOSINOPHILS # 0.3 10^3/ul (0.0-0.5); EOSINOPHILS % 4.5 % (0.0-7.0); HEMOGLOBIN 11.1 g/dl (12.0-16.0); LYMPHOCYTES # 2.3 10^3/ul (0.8-2.9); LYMPHOCYTES % 31.6 % (15.0-51.0); MEAN CORPUSCULAR HEMOGLOBIN 28.7 pg (29.0-33.0); MEAN CORPUSCULAR HGB CONC 32.6 g/dl (32.0-37.0); MEAN CORPUSCULAR VOLUME 87.9 fl (82.0-101.0); MEAN PLATELET VOLUME 10.5 fl (7.4-10.4); MONOCYTE # 0.7 10^3/ul (0.3-0.9); MONOCYTES % 9.2 % (0.0-11.0); NEUTROPHIL # 3.9 10^3/ul (1.6-7.5); NEUTROPHILS % 53.6 % (39.0-77.0); PLATELET COUNT 304 10^3/UL (140-415); RED BLOOD COUNT 3.87 10^6/ul (4.20-5.40); RED CELL DISTRIBUTION WIDTH 13.5 % (11.5-14.5)
[2017-12-30 06:59] LABS: ANION GAP 15 (8-16); BLOOD UREA NITROGEN 30 mg/dl (7-20); CALCIUM 8.6 mg/dl (8.4-10.2); CARBON DIOXIDE 26 mmol/L (21-31); CHLORIDE 107 mmol/L (97-110); CREATININE 0.81 mg/dl (0.44-1.00); GLUCOSE 130 mg/dl (70-220); MAGNESIUM 1.9 mg/dl (1.7-2.5); PHOSPHORUS 3.9 mg/dl (2.5-4.9); POTASSIUM 3.9 mmol/L (3.5-5.1); SODIUM 144 mmol/L (135-144)
[2017-12-30] MEDS: INSULIN ASPART [NOVOLOG] 3 ML PEN SC ×3 (08:15→17:31)
[2017-12-30] MEDS: OXYBUTYNIN 5 MG TAB PO (08:41)
[2017-12-30] MEDS: METOPROLOL (XL) 50 MG TAB PO (08:42)
[2017-12-30] MEDS: ASPIRIN (EC) 81 MG TAB PO (08:42)
[2017-12-30] MEDS: ERTAPENEM SODIUM 1 GM in SOD CHLORIDE 0.9% 100 ML IVPB (09:11)
[2017-12-30] MEDS: AMLODIPINE 10 MG TAB PO (12:41)
[2017-12-30] MEDS: hydrALAzine 20 MG INJ IV (13:01)
[2017-12-31] MEDS ORDERED: AMLODIPINE 10 MG TAB PO (09:00)
== END 2017-12-30 18:00 | disposition home or self-care (01) | DRG 871 ==
LOC: MS2 12-24 11:24 → E/R 16:22 → MS2 12-23 22:23 → MS4 19:58
PROVIDERS: Family Medicine
DX: A41.9 Sepsis, unspecified organism (principal); L89.153 Pressure ulcer of sacral region, stage 3; N39.0 Urinary tract infection, site not specified; N17.9 Acute kidney failure, unspecified; F05 Delirium due to known physiological condition; R65.20 Severe sepsis without septic shock; E86.0 Dehydration; E11.65 Type 2 diabetes mellitus with hyperglycemia; F03.90 Unspecified dementia, unspecified severity, without behavioral disturbance, psychotic disturbance, mood disturbance, and anxiety; E87.5 Hyperkalemia; D64.9 Anemia, unspecified; E78.5 Hyperlipidemia, unspecified; I10 Essential (primary) hypertension; R62.7 Adult failure to thrive; B96.20 Unspecified Escherichia coli [E. coli] as the cause of diseases classified elsewhere; Z79.4 Long term (current) use of insulin; Z79.82 Long term (current) use of aspirin; Z90.49 Acquired absence of other specified parts of digestive tract
CPT/HCPCS: 36415; 71045; 80048; 80053; 80069; 81001; 82962; 83605; 83735; 84100; 84443; 84484; 85025; 85610; 85730; 87040; 87086; 93005; 96365; 96372; 96375; 97116; 97162; 97530; 99291-25

== ENCOUNTER 2018-12-03 11:28 | Inpatient (IN) | payer MEDICARE, OTHER ==
[2018-12-03] MEDS: CEFTRIAXONE 1 GM/50 ML (PMX) 50 ML IVPB (12:23)
[2018-12-03 12:25] LABS: ADD MAN DIFF? NO
[2018-12-03 12:36] LABS: WHITE BLOOD COUNT 9.5 10^3/ul (4.8-10.8)
[2018-12-03 12:36] LABS: BASOPHILS % 0.4 % (0.0-2.0); EOSINOPHILS # 0.1 10^3/ul (0.0-0.5); EOSINOPHILS % 1.4 % (0.0-7.0); HEMATOCRIT 39.3 % (37.0-47.0); HEMOGLOBIN 12.6 g/dl (12.0-16.0); LYMPHOCYTES % 21.5 % (15.0-51.0); MEAN CORPUSCULAR HEMOGLOBIN 28.3 pg (29.0-33.0); MEAN CORPUSCULAR HGB CONC 32.1 g/dl (32.0-37.0); MEAN CORPUSCULAR VOLUME 88.3 fl (82.0-101.0); MEAN PLATELET VOLUME 10.2 fl (7.4-10.4); MONOCYTE # 0.4 10^3/ul (0.3-0.9); MONOCYTES % 3.8 % (0.0-11.0); NEUTROPHIL # 6.9 10^3/ul (1.6-7.5); NEUTROPHILS % 72.3 % (39.0-77.0); PLATELET COUNT 354 10^3/UL (140-415); RED BLOOD COUNT 4.45 10^6/ul (4.20-5.40); RED CELL DISTRIBUTION WIDTH 13.1 % (11.5-14.5)
[2018-12-03 12:55] LABS: ALBUMIN 4.4 g/dl (3.3-4.9); ALBUMIN/GLOBULIN RATIO 0.95; ALKALINE PHOSPHATASE 96 IU/L (42-121); ANION GAP 16 (5-13); ASPARTATE AMINO TRANSFERASE 18 IU/L (15-46); BILIRUBIN,INDIRECT 0.3 mg/dl (0-1.1); BILIRUBIN,TOTAL 0.3 mg/dl (0.2-1.3); BLOOD UREA NITROGEN 27 mg/dl (7-20); CALCIUM 9.4 mg/dl (8.4-10.2); CARBON DIOXIDE 23 mmol/L (21-31); CHLORIDE 101 mmol/L (97-110); CREATININE 1.01 mg/dl (0.44-1.00); GLUCOSE 295 mg/dl (70-220); POTASSIUM 4.3 mmol/L (3.5-5.1); SODIUM 140 mmol/L (135-144)
[2018-12-03 12:56] LABS: ALANINE AMINOTRANSFERASE < 6 IU/L (13-69)
[2018-12-03 13:05] LABS: B-TYPE NATRIURETIC PEPTIDE 577 PG/ML (0-450); TROPONIN-I < 0.012 ng/ml (0.000-0.120)
[2018-12-03] MEDS: AZITHROMYCIN 500MG/NS (PMX) 250 ML IV (13:40)
[2018-12-03] MEDS ORDERED: ACETAMINOPHEN 325 MG TAB PO ×2 (14:00)
[2018-12-03] MEDS ORDERED: GLUCAGON 1 MG INJ IM (14:00)
[2018-12-03] MEDS ORDERED: GLUCOSE GEL 15 GRAM TUBE PO (14:00)
[2018-12-03] MEDS ORDERED: ALBUTEROL/IPRATROPIUM (NEB) 3 ML AMP HHN (14:00)
[2018-12-03] MEDS ORDERED: DEXTROSE 50% 50 ML SYRINGE IV (14:00)
[2018-12-03] MEDS ORDERED: GLUCOSE GEL 15 GRAM TUBE BUCCAL (14:00)
[2018-12-03] MEDS ORDERED: ONDANSETRON 4 MG INJ IV ×2 (14:00)
[2018-12-03] MEDS ORDERED: NACL 0.9% 3 ML SYG IV (14:00)
[2018-12-03] MEDS: ALBUTEROL/IPRATROPIUM (NEB) 3 ML AMP HHN ×2 (14:00→21:14)
[2018-12-03] MEDS: metroNIDAZOLE 500 MG/NS (PMX) 100 ML IVPB ×2 (15:13→21:16)
[2018-12-03] MEDS: INSULIN ASPART [NOVOLOG] 3 ML PEN SC ×2 (18:00→21:00)
[2018-12-03] MEDS ORDERED: PIPER-TAZO 3.375 GM IV (PMX) 100 ML IVPB (18:00)
[2018-12-03] MEDS: DEXTROSE 50% 50 ML SYRINGE IV (18:01)
[2018-12-03] MEDS: ATORVASTATIN 10 MG TAB PO (21:11)
[2018-12-03] MEDS: BUDESONIDE (NEB) 0.5MG/2ML AMP HHN ×2 (21:14→21:15)
[2018-12-04] MEDS: ACCU-CHEK XX (02:00)
[2018-12-04 05:52] LABS: ADD MAN DIFF? NO
[2018-12-04 05:57] LABS: BASOPHIL # 0.1 10^3/ul (0.0-0.1); BASOPHILS % 0.6 % (0.0-2.0); EOSINOPHILS # 0.2 10^3/ul (0.0-0.5); EOSINOPHILS % 1.4 % (0.0-7.0); HEMATOCRIT 38.4 % (37.0-47.0); HEMOGLOBIN 12.5 g/dl (12.0-16.0); LYMPHOCYTES # 2.3 10^3/ul (0.8-2.9); LYMPHOCYTES % 21.2 % (15.0-51.0); MEAN CORPUSCULAR HEMOGLOBIN 28.5 pg (29.0-33.0); MEAN CORPUSCULAR HGB CONC 32.6 g/dl (32.0-37.0); MEAN CORPUSCULAR VOLUME 87.5 fl (82.0-101.0); MEAN PLATELET VOLUME 10.5 fl (7.4-10.4); MONOCYTE # 0.6 10^3/ul (0.3-0.9); MONOCYTES % 5.1 % (0.0-11.0); NEUTROPHIL # 7.6 10^3/ul (1.6-7.5); PLATELET COUNT 370 10^3/UL (140-415); RED BLOOD COUNT 4.39 10^6/ul (4.20-5.40); RED CELL DISTRIBUTION WIDTH 12.7 % (11.5-14.5)
[2018-12-04 05:57] LABS: WHITE BLOOD COUNT 10.7 10^3/ul (4.8-10.8)
[2018-12-04] MEDS: metroNIDAZOLE 500 MG/NS (PMX) 100 ML IVPB ×3 (06:00→21:31)
[2018-12-04 06:31] LABS: ALANINE AMINOTRANSFERASE 9 IU/L (13-69); ALBUMIN 4.1 g/dl (3.3-4.9); ALBUMIN/GLOBULIN RATIO 0.95; ALKALINE PHOSPHATASE 89 IU/L (42-121); ANION GAP 11 (5-13); ASPARTATE AMINO TRANSFERASE 24 IU/L (15-46); BILIRUBIN,INDIRECT 0.2 mg/dl (0-1.1); BILIRUBIN,TOTAL 0.2 mg/dl (0.2-1.3); BLOOD UREA NITROGEN 23 mg/dl (7-20); CALCIUM 9.2 mg/dl (8.4-10.2); CARBON DIOXIDE 26 mmol/L (21-31); CHLORIDE 103 mmol/L (97-110); CREATININE 1.02 mg/dl (0.44-1.00); MAGNESIUM 1.5 mg/dl (1.7-2.5); POTASSIUM 3.7 mmol/L (3.5-5.1); SODIUM 140 mmol/L (135-144); TOTAL PROTEIN 8.4 g/dl (6.1-8.1)
[2018-12-04 06:42] LABS: GLUCOSE 46 mg/dl (70-220)
[2018-12-04] MEDS: GLUCOSE GEL 15 GRAM TUBE PO (06:57)
[2018-12-04 07:12] LABS: HEMOGLOBIN A1C 8.6 % (0-5.9)
[2018-12-04] MEDS: ALBUTEROL/IPRATROPIUM (NEB) 3 ML AMP HHN ×3 (08:19→20:42)
[2018-12-04] MEDS: BUDESONIDE (NEB) 0.5MG/2ML AMP HHN ×2 (08:19→20:42)
[2018-12-04] MEDS: OXYBUTYNIN 5 MG TAB PO (09:46)
[2018-12-04] MEDS: ASPIRIN (EC) 81 MG TAB PO (09:46)
[2018-12-04] MEDS: LOSARTAN 50 MG TAB PO (09:46)
[2018-12-04] MEDS: AMLODIPINE 10 MG TAB PO (09:47)
[2018-12-04] MEDS: METOPROLOL (XL) 50 MG TAB PO (09:47)
[2018-12-04] MEDS: INSULIN ASPART [NOVOLOG] 3 ML PEN SC ×4 (10:00→20:16)
[2018-12-04] MEDS: MAGNESIUM SULFATE 2 GM/50 ML 50 ML IVPB (12:56)
[2018-12-04] MEDS: INSULIN GLARGINE [LANTus] (100 UNITS/ML) SYG SC (13:00)
[2018-12-04] MEDS: CEFTRIAXONE 1 GM/50 ML (PMX) 50 ML IVPB (14:46)
[2018-12-04] MEDS: ATORVASTATIN 10 MG TAB PO (20:14)
[2018-12-05] MEDS: ACCU-CHEK XX (02:00)
[2018-12-05 05:40] LABS: ADD MAN DIFF? NO
[2018-12-05 06:01] LABS: BASOPHIL # 0.1 10^3/ul (0.0-0.1); BASOPHILS % 0.7 % (0.0-2.0); EOSINOPHILS # 0.1 10^3/ul (0.0-0.5); EOSINOPHILS % 1.5 % (0.0-7.0); HEMATOCRIT 33.5 % (37.0-47.0); HEMOGLOBIN 10.9 g/dl (12.0-16.0); LYMPHOCYTES # 2.1 10^3/ul (0.8-2.9); LYMPHOCYTES % 21.8 % (15.0-51.0); MEAN CORPUSCULAR HEMOGLOBIN 28.2 pg (29.0-33.0); MEAN CORPUSCULAR HGB CONC 32.5 g/dl (32.0-37.0); MEAN CORPUSCULAR VOLUME 86.8 fl (82.0-101.0); MEAN PLATELET VOLUME 10.5 fl (7.4-10.4); MONOCYTE # 0.6 10^3/ul (0.3-0.9); MONOCYTES % 6.4 % (0.0-11.0); NEUTROPHIL # 6.5 10^3/ul (1.6-7.5); NEUTROPHILS % 68.9 % (39.0-77.0); PLATELET COUNT 349 10^3/UL (140-415); RED BLOOD COUNT 3.86 10^6/ul (4.20-5.40); RED CELL DISTRIBUTION WIDTH 12.6 % (11.5-14.5)
[2018-12-05 06:01] LABS: WHITE BLOOD COUNT 9.5 10^3/ul (4.8-10.8)
[2018-12-05 06:30] LABS: ALBUMIN 3.3 g/dl (3.3-4.9); ANION GAP 7 (5-13); BLOOD UREA NITROGEN 25 mg/dl (7-20); CALCIUM 8.7 mg/dl (8.4-10.2); CARBON DIOXIDE 23 mmol/L (21-31); CHLORIDE 107 mmol/L (97-110); CREATININE 1.04 mg/dl (0.44-1.00); GLUCOSE 195 mg/dl (70-220); MAGNESIUM 1.9 mg/dl (1.7-2.5); PHOSPHORUS 3.9 mg/dl (2.5-4.9); POTASSIUM 4.3 mmol/L (3.5-5.1); SODIUM 137 mmol/L (135-144)
[2018-12-05] MEDS: ALBUTEROL/IPRATROPIUM (NEB) 3 ML AMP HHN ×3 (07:28→20:00)
[2018-12-05] MEDS: BUDESONIDE (NEB) 0.5MG/2ML AMP HHN ×2 (07:28→21:40)
[2018-12-05] MEDS: LOSARTAN 50 MG TAB PO (08:26)
[2018-12-05] MEDS: METOPROLOL (XL) 50 MG TAB PO (08:26)
[2018-12-05] MEDS: ASPIRIN (EC) 81 MG TAB PO (08:27)
[2018-12-05] MEDS: AMLODIPINE 10 MG TAB PO (08:27)
[2018-12-05] MEDS: OXYBUTYNIN 5 MG TAB PO (08:27)
[2018-12-05] MEDS: AMOXICILLIN/CLAV 875 MG TAB PO ×2 (08:27→21:43)
[2018-12-05] MEDS: INSULIN GLARGINE [LANTus] (100 UNITS/ML) SYG SC (08:31)
[2018-12-05] MEDS: INSULIN ASPART [NOVOLOG] 3 ML PEN SC ×4 (08:31→21:48)
[2018-12-05] MEDS: ATORVASTATIN 10 MG TAB PO (21:43)
[2018-12-05] MEDS: GUAIFENESIN/DM 5ML CUP PO (21:51)
[2018-12-06] MEDS: ACCU-CHEK XX (02:00)
[2018-12-06] MEDS: ALBUTEROL/IPRATROPIUM (NEB) 3 ML AMP HHN ×3 (08:07→14:06)
[2018-12-06] MEDS: BUDESONIDE (NEB) 0.5MG/2ML AMP HHN ×2 (08:07→14:05)
[2018-12-06] MEDS: LOSARTAN 50 MG TAB PO (08:33)
[2018-12-06] MEDS: metFORMIN 500 MG TAB PO (08:33)
[2018-12-06] MEDS: AMOXICILLIN/CLAV 875 MG TAB PO (08:33)
[2018-12-06] MEDS: AMLODIPINE 10 MG TAB PO (08:34)
[2018-12-06] MEDS: METOPROLOL (XL) 50 MG TAB PO (08:34)
[2018-12-06] MEDS: OXYBUTYNIN 5 MG TAB PO (08:34)
[2018-12-06] MEDS: ASPIRIN (EC) 81 MG TAB PO (08:34)
[2018-12-06] MEDS: INSULIN ASPART [NOVOLOG] 3 ML PEN SC ×2 (08:43→13:30)
[2018-12-06] MEDS: INSULIN GLARGINE [LANTus] (100 UNITS/ML) SYG SC (08:44)
== END 2018-12-06 16:30 | disposition home or self-care (01) | DRG 178 ==
LOC: E/R 11:28 → 2NE 13:32
DX: J69.0 Pneumonitis due to inhalation of food and vomit (principal); G93.49 Other encephalopathy; F02.81 Dementia in other diseases classified elsewhere, unspecified severity, with behavioral disturbance; I35.0 Nonrheumatic aortic (valve) stenosis; E11.9 Type 2 diabetes mellitus without complications; E78.5 Hyperlipidemia, unspecified; I10 Essential (primary) hypertension; G30.9 Alzheimer's disease, unspecified
CPT/HCPCS: 36415; 71045; 80053; 80069; 82962; 83036; 83735; 83880; 84484; 85025; 87040-91; 93306; 94640; 94664; 96374; 97110; 97162; 97165; 97530; 99285-25